=== PATIENT | female | born 1970 ===

== ENCOUNTER 2016-08-30 15:38 | Inpatient (IN) | payer BC ==
[2016-08-30 15:39] VITALS: BMI 27.9
--- NOTE | 2016-08-30 16:26 | C.PDOC ---
History Of Present Illness 45 y/o female sent from [facility] by Dr Castañeda for psychiatric evaluation. Patient made comments of SI in office with plan to overdose. Pt denies HI or any other complaints. Time Seen by Provider: 08/30/16 16:11 Chief Complaint (Nursing): Psychiatric Evaluation History Per: Patient History/Exam Limitations: no limitations Onset/Duration Of Symptoms: Days Current Symptoms Are (Timing): Still Present Severity: Moderate Associated Symptoms: Suicidal Thoughts, Suicidal Plan Involuntary Hold By: None Recent travel outside of the [place]: No Past Medical History Reviewed: Historical Data, Nursing Documentation, Vital Signs Vital Signs: Last Vital Signs Temp 98.9 F 08/30/16 15:50 Pulse 81 08/30/16 15:50 Resp 18 08/30/16 15:50 BP 133/83 08/30/16 15:50 Pulse Ox 99 08/30/16 16:27 - Medical History PMH: Anemia, Arthritis, Back Problems, Depression, Diabetes, Rheumatoid Arthritis (back ,lt leg ,both hands) - [facility] Procedures D & C NEC (12/06/14) LOCAL DESTR OVA LES NEC (12/06/14) Family History: States: Unknown Family Hx - Social History Hx Tobacco Use: No Hx Alcohol Use: No Hx Substance Use: No - Immunization History Hx Tetanus Toxoid Vaccination: No Hx Influenza Vaccination: Yes Hx Pneumococcal Vaccination: No Review Of Systems Constitutional: Negative for: Fever Cardiovascular: Negative for: Chest Pain Respiratory: Negative for: Shortness of Breath Gastrointestinal: Negative for: Vomiting Psych: Positive for: Suicidal ideation Physical Exam - Physical Exam Appears: Non-toxic, No Acute Distress Skin: Warm, Dry, No Rash Head: Atraumatic, Normacephalic Eye(s): bilateral: Normal Inspection, EOMI Neck: Normal ROM Chest: Symmetrical Cardiovascular: Rhythm Regular, No Murmur Respiratory: Normal Breath Sounds, No Rales, No Rhonchi, No Wheezing Gastrointestinal/Abdominal: Soft Extremity: Normal ROM, No Tenderness, No Calf Tenderness, No Deformity, No Swelling Neurological/Psych: Oriented x3, Normal Speech Gait: Steady ED Course And Treatment - Laboratory Results Result Diagrams: 08/30/16 16:20 08/30/16 16:20 O2 Sat by Pulse Oximetry: 99 (on room air) Pulse Ox Interpretation: Normal Medical Decision Making Medical Decision Making: Plan: * labs * UA * CRISIS evaluation Labs ordered and reviewed. In my clinical judgment patient is medically cleared and stable for psychiatric admission. wood processing worker contacted for evaluation. As per CW patient is to be admitted. Disposition - Disposition Disposition: HOSPITALIZED Disposition Time: 18:38 Condition: STABLE - POA Present On Arrival: None - Clinical Impression Clinical Impression: Depression - PA / POLICE DETECTIVE / Resident Statement MD/DO has reviewed & agrees with the documentation as recorded. - Scribe Statement The provider has reviewed the documentation as recorded by the Andreaibmaría Saenz All medical record entries made by the Scribe were at my direction and personally dictated by me. I have reviewed the chart and agree that the record accurately reflects my personal performance of the history, physical exam, medical decision making, and the department course for this patient. I have also personally directed, reviewed, and agree with the discharge instructions and disposition. Decision To Admit - Pt Status Changed To: Hospital Disposition Of: Inpatient - Admit Certification Admit to Inpatient:: After my assessment, the patient will require hospitalization for at least two midnights. This is because of the severity of symptoms shown, intensity of services needed, and/or the medical risk in this patient being treated as an outpatient. - InPatient: Physician Admission Certification: I certify that this patient requires 2 or more midnights of care for the following reason:: Patient with depression needing inpatient care, expressed SI - . Bed Request Type: Psychiatry Admitting Physician: Jacob Ward Patient Diagnosis: Depression
[2016-08-30 16:31] LABS: BASO % 0.6 % (0.0-2.0); EOS # 0.1 K/uL (0.0-0.7); EOS % 1.7 % (0.0-4.0); HEMATOCRIT 31.7 % (34.0-47.0); LYMPH # 1.7 K/uL (1.0-4.3); LYMPH % 21.3 % (20.0-40.0); MEAN CORPUSCULAR HEMOGLOBIN 25.7 pg (27.0-31.0); MEAN CORPUSCULAR HGB CONC 31.9 g/dL (33.0-37.0); MEAN PLATELET VOLUME 7.6 fL (7.2-11.7); MONO # 0.6 K/uL (0.0-0.8); MONO % 7.7 % (0.0-10.0); RED CELL DISTRIBUTION WIDTH 14.5 % (11.5-14.5); WHITE BLOOD COUNT 7.8 K/uL (4.8-10.8)
[2016-08-30 16:34] LABS: MEAN CELL VOLUME 80.5 fL (81.0-99.0)
[2016-08-30 16:40] LABS: CHLORIDE 97 mmol/L (98-107); SODIUM 138 mmol/L (132-148)
[2016-08-30 16:41] LABS: POTASSIUM 3.8 mmol/L (3.6-5.2)
[2016-08-30 16:42] LABS: RBC URINE 1 /hpf (0-3); URINE BILIRUBIN NEGATIVE (NEGATIVE); URINE BLOOD NEGATIVE (NEGATIVE); URINE COLOR Yellow (YELLOW); URINE GLUCOSE (UA) NORMAL (Normal); URINE KETONE NEGATIVE (NEGATIVE); URINE LEUKOCYTE ESTERASE NEG Leu/uL (Negative); URINE PROTEIN NEGATIVE (NEGATIVE); URINE UROBILINOGEN NORMAL mg/dL (0.2-1.0); WBC URINE < 1 /hpf (0-5)
[2016-08-30 16:43] LABS: ALB/GLOB RATIO 1.2 (1.0-2.1); ALKALINE PHOSPHATASE 81 U/L (38-126); ALT/SGPT 40 U/L (9-52); AST/SGOT 38 U/L (14-36); BILIRUBIN,TOTAL 0.3 mg/dL (0.2-1.3); BLOOD UREA NITROGEN 10 mg/dL (7-17); CALCIUM 8.9 mg/dl (8.6-10.4); CARBON DIOXIDE 25 mmol/L (22-30); GFR AFRICAN-AMERICAN > 60; GLUCOSE,RANDOM 95 mg/dL (65-105)
[2016-08-30 16:44] LABS: ALCOHOL SERUM < 10 mg/dl (0-10)
[2016-08-30 19:43] VITALS: O2SAT 98
[2016-08-30] MEDS ORDERED: Influenza Virus Vaccine 45 mcg/0.5 ml Syr IM ONE (21:00)
--- NOTE | 2016-08-31 11:12 | PCM.PSYCH ---
Initial Psychiatric Evaluation - Initial Psychiatric Evaluation Type of Admission: Voluntary Legal Status: Capacity Chief Complaint (in patient's own words): I am feeling very depressed History of Present Illness and Precipitating Events: Patient is a 45 years old female, who lives alone and currently unemployed on SSD. She has a long history of depressive disorder Rheumatoid arthritis and fibromyalgia. Yesterday she presented to the ED because of depressed mood and suicidal ideation. Patient states that she has a long history of depressive disorder due to her medical conditions ovarian tumor, rheumatoid arthritis and fibromyalgia. Since past few weeks she is experiencing a lot of joint pains and back pains. As a result she is becoming increasingly depressed, irritable and hopeless. Although she has never admitted to any psychiatric hospital, nevertheless, she follows up with Dr Castañeda at [facility]. As per the pt yesterday she was in severe pain when she became increasingly depressed and developed suicidal ideation with a plan to overdose on prescription medications. Patient states that she has no hope as has joint disease have become worse over the course of years, she now feels helpless and worthless. She reports poor sleep and poor appetite. She feels tired all the times. Recently she has been hearing voices calling her names and she is developing persecutory delusions that someone is watching her. She denies any visual hallucinations or any other psychotic symptoms. She denies any h/o drinking or any drugs use. Past medical history Rheumatoid Arthritis, DM, Fibromyalgia, Ovarian tumor Current Medications: Active Medications Generic Name Dose Route Start Last Admin Trade Name Freq PRN Reason Stop Dose Admin Diclofenac Sodium 75 mg 08/31/16 11:09 Voltaren PO BID PRN Pain, moderate (4-7) Ferrous Sulfate 325 mg 08/31/16 10:00 08/31/16 11:08 Feosol PO 325 mg DAILY ASTRID Administration Home Med 10 mg 08/31/16 11:15 Medroxyprogesterone Acetate [Medroxyprogesterone] PO BID ASTRID Home Med 25 mg 09/01/16 10:00 Venlafaxine Hcl [Venlafaxine Hcl] PO QAM ASTRID Lorazepam 1 mg 08/30/16 21:09 08/30/16 22:44 Ativan PO 1 mg Q6 PRN Administration Anxiety Metformin HCl 500 mg 08/31/16 10:00 08/31/16 11:08 Glucophage PO 500 mg BID ASTRID Administration Pneumococcal Polyvalent Vaccine 0.5 ml 09/02/16 10:00 Pneumovax 23 Vaccine IM 09/02/16 10:01 .ONCE ONE Pregabalin 150 mg 08/30/16 22:00 08/30/16 22:44 Lyrica PO 150 mg HS ASTRID Administration Pregabalin 150 mg 08/31/16 22:00 Lyrica PO HS ASTRID Sulfasalazine 2 mg 08/31/16 11:15 Azulfidine PO BID ASTRID Trazodone HCl 50 mg 08/30/16 21:09 Desyrel PO HS PRN Insomnia Past Psychiatric History - Past Psychiatric History Previous Treatment History: None Pertinent Medical Hx (Current Medical&Sleep Prob, Allergies): Allergies Allergy/AdvReac Type Severity Reaction Status Date / Time No Known Allergies Allergy Verified 02/02/16 14:21 metFORMIN ER [glucoPHAGE XR] 500 mg PO TID #0 ter 12/15/14 Diclofenac Sodium [Voltaren] 75 mg PO BID PRN 05/01/15 Medroxyprogesterone Acetate [Medroxyprogesterone] 10 mg PO BID 05/01/15 Pregabalin [Lyrica] 150 mg PO HS 05/01/15 SulfaSALAzine [Azulfidine] 2 tab PO BID 05/01/15 Venlafaxine HCl 25 mg PO QAM 05/01/15 Ferrous Sulfate 325 mg PO DAILY #100 tab 05/03/15 Review of Systems - Review of Systems All systems: reviewed and no additional remarkable complaints except - Psychiatric Psychiatric: Anxiety, Auditory Hallucinations, Depression, Hopelessness, Irritability, Paranoia, Suicidal Ideation Mental Status Examination - Personal Presentation Personal Presentation: Looks older than stated age - Affect Affect: Constricted, Depressed - Motor Activity Motor Activity: Psychomotor Retardation - Reliability in Providing Information Reliability in Providing Information: Poor, due to altered mood - Speech Speech: Organized - Mood Mood: Depressed, Anxious - Formal Thought Process Formal Thought Process: Hallucinations, Paranoia - Hallucinations/Delusions Hallucinations: Auditory Delusions: Persecution - Obsessions/Compulsions Obsessions: No Compulsions: No - Cognitive Functions Orientation: Person, Place, Situation, Time Sensorium: Alert Attention/Concentration: Attentive Abstract Thinking: [place] Estimate of Intelligence: Below average Judgement: Imparied, as evidence by: Poor judgement, Imparied, as evidence by: Lack of insight into illness - Risk Risk: Suicidal, Diminished functioning - Strength & Assets Inventory Strength & Assets Inventory: Education - Limitations Limitations: Living alone DSM 5 DX - DSM 5 DSM 5 Diagnosis: Major depressive disorder recurrent severe with psychotic features Fibromyalgia Rheumatoid Arthritis, DM Ovarian tumor - Recommended/Plan of Treatment Treatment Recommendations and Plan of Treatment: Major depressive disorder recurrent severe with psychotic features CBT Psychoeducation Supportive therapy, group therapy, individual therapy Zoloft 50 mg by mouth daily with plan to maximize the dose Trazodone 50 mg by mouth daily at bedtime Remeron 15 mg po qhs Fibromyalgia Start Gabapentin 300 mg PO TID Continue prescribed medications Monitor for signs and symptoms Rheumatoid Arthritis, Continue prescribed medications Monitor for signs and symptoms DM Continue prescribed medications Monitor for signs and symptoms Ovarian tumor Continue prescribed medications Monitor for signs and symptoms - Smoking Cessation Smoking Cessation Initiated: No
[2016-08-31] MEDS ORDERED: MEDROXYPROGESTERONE ACETATE 10 MG PO SCH (11:15)
[2016-08-31] MEDS ORDERED: Diclofenac Sodium Delayed Release 75 mg EC Tab PO PRN (12:13)
[2016-09-01] MEDS ORDERED: VENLAFAXINE HCL 25 MG PO SCH (10:00)
[2016-09-01 10:11] VITALS: TEMP 98
[2016-09-02 07:40] VITALS: BP 102/63; PULSE 66; RESP 18
[2016-09-02] MEDS ORDERED: Pneumococcal 23-Valent Vaccine IM ONE (10:00)
== END 2016-09-02 11:20 | disposition home or self-care (01) | DRG 885 ==
LOC: C.ER 15:38 → C.5E 18:37
PROVIDERS: ADMIT Psychiatry & Neurology Psychiatry; ATTEND Psychiatry & Neurology Psychiatry
PROC: GZ3ZZZZ Medication Management (ICD-10-PCS; principal; 2016-08-30)
PROC: GZHZZZZ Group Psychotherapy (ICD-10-PCS; 2016-08-30)
PROC: GZ56ZZZ Individual Psychotherapy, Supportive (ICD-10-PCS; 2016-08-30)
DX: F33.3 Major depressive disorder, recurrent, severe with psychotic symptoms (principal); R45.851 Suicidal ideations; M79.7 Fibromyalgia; M06.9 Rheumatoid arthritis, unspecified; E11.9 Type 2 diabetes mellitus without complications; D39.10 Neoplasm of uncertain behavior of unspecified ovary; Z79.84 Long term (current) use of oral hypoglycemic drugs

== ENCOUNTER 2017-08-07 12:14 | Emergency (ER) | payer MEDICARE ==
[2017-08-07 12:14] VITALS: BMI 27.9
[2017-08-07 12:41] VITALS: RESP 16; TEMP 97.8
--- NOTE | 2017-08-07 14:05 | C.PDOC ---
History Of Present Illness <Jaquelin Latif - Last Filed: 08/07/17 17:34> <Kaley Marquez - Last Filed: 08/07/17 18:21> 46 year old female with past medical history of fibromyalgia, major depressive disorder, rheumatoid arthritis, and diabetes presents to the ED for abdominal pain that started 2 days ago. Patient saw her oceanographer geological today who told her to come to the ER. Patient states the pain is a sharp pain radiating to her pelvis. She states the pain is a 7/10 constant pain. She states she has felt nauseated. She denies vomiting, fever, or diarrhea. She states she has chronic constipation with hemorrhoids that she sees a paraoptometric for. She states before coming to the ED she took 4 tablets of 0.25mg Xanax and 4 tablets of 150mg of Lyrica because the pain was unbearable and she usually gets depressed when she has intense pain. She denies current thoughts of hurting herself. Rhematologist: Dr. Matos Past Medical History:fibromyalgia, major depressive disorder, rheumatoid arthritis, diabetes, hemorrhoids and fibroids. Past Surgical History: Hernia repair, fibroid removal Allergies: NKDA (Jaquelin Latif) Patient c/o lower abdominal pain with radiation into her left flank and lower back for the past 3 days. She feels as if her bladder is not emptying completely.She has a history of a pelvic mesh that she wants to have removed. She denies any dysuria, fever chills or vaginal bleeding or discharge. (Kaley Marquez) History Per: Patient History/Exam Limitations: no limitations Current Symptoms Are (Timing): Still Present Pain Scale Rating Of: 7 <Jaquelin Latif - Last Filed: 08/07/17 17:34> <Kaley Marquez - Last Filed: 08/07/17 18:21> Time Seen by Provider: 08/07/17 13:42 Chief Complaint (Nursing): Abdominal Pain Past Medical History - Medical History PMH: Anemia, Arthritis, Back Problems, Depression, Diabetes, Hypercholesterolemia (NO MEDS), Rheumatoid Arthritis (back ,lt leg ,both hands) Denies: Chronic Kidney Disease Family History: States: Unknown Family Hx - Social History Hx Tobacco Use: No Hx Alcohol Use: No Hx Substance Use: No - Immunization History Hx Tetanus Toxoid Vaccination: No Hx Influenza Vaccination: Yes Hx Pneumococcal Vaccination: No <Jaquelin Latif - Last Filed: 08/07/17 17:34> Vital Signs: Last Vital Signs Temp 97.8 F 08/07/17 12:33 Pulse 93 H 08/07/17 12:33 Resp 16 08/07/17 12:33 BP 124/88 08/07/17 12:33 Pulse Ox 99 08/07/17 17:34 - [facility] Procedures D & C NEC (12/06/14) GROUP PSYCHOTHERAPY (08/30/16) INDIVIDUAL PSYCHOTHERAPY, SUPPORTIVE (08/30/16) LOCAL DESTR OVA LES NEC (12/06/14) MEDICATION MANAGEMENT (08/30/16) Review Of Systems Constitutional: Negative for: Fever, Chills Cardiovascular: Negative for: Chest Pain, Palpitations Respiratory: Negative for: Cough, Shortness of Breath Gastrointestinal: Positive for: Nausea, Abdominal Pain, Constipation. Negative for: Vomiting, Diarrhea Genitourinary: Positive for: Dysuria, Pelvic Pain. Negative for: Hematuria Neurological: Negative for: Numbness, Dizziness <Jaquelin Latif - Last Filed: 08/07/17 17:34> Physical Exam - Physical Exam Appears: Non-toxic, No Acute Distress Skin: Normal Color Head: Atraumatic, Normacephalic Eye(s): bilateral: Normal Inspection, PERRL, EOMI Oral Mucosa: Moist Cardiovascular: Rhythm Regular, No Murmur, No JVD Respiratory: Normal Breath Sounds, No Decreased Breath Sounds, No Accessory Muscle Use, No Wheezing Gastrointestinal/Abdominal: Bowel Sounds (normal), Soft, Tenderness (lower middle abdominal tenderness ), No Distention, No Guarding, No Rebound Extremity: No Tenderness, No Pedal Edema, No Swelling Neurological/Psych: Oriented x3, Normal Speech, Normal Cognition <Jaquelin Latif - Last Filed: 08/07/17 17:34> ED Course And Treatment - Laboratory Results Result Diagrams: 08/07/17 14:23 08/07/17 14:23 O2 Sat by Pulse Oximetry: 99 <Jaquelin Latif - Last Filed: 08/07/17 17:34> - Laboratory Results Result Diagrams: 08/07/17 14:23 08/07/17 14:23 Lab Interpretation: No Acute Changes Pulse Ox Interpretation: Normal - CT Scan/US Abdomen and Pelvis Other Rad Studies (CT/US): Read By Radiologist, Radiology Report Reviewed CT/US Interpretation: Accession No. : [id number]. Patient Name / ID : BRANNON SEE / [id number]. Exam Date : 08/07/2017 15:33:05 ( Approved ). Study Comment : Sex / Age : F / 46Y. Creator : Socorro Malagon MD. Dictator : Socorro Malagon MD. Coding Quality Analyst : [employer] : Socorro Malagon MD. Approver2 : Report Date : 08/07/2017 16:37:48. My Comment : . HISTORY: Abdominal ultrasound. COMPARISON: CT abdomen and pelvis with contrast performed 05/04/15. TECHNIQUE: Sonographic evaluation of the abdomen. FINDINGS: LIVER: Measures 18.7 cm in sagittal dimension. Echogenic liver may be seen in setting of hepatic parenchymal disease or fatty infiltration. No focal hepatic mass identified. The main portal vein appears patent with normal directional flow. No intrahepatic bile duct dilatation. GALLBLADDER: No gallstones. No gallbladder wall thickening. Negative sonographic Cardenas's sign as assessed by the personal caregiver. COMMON BILE DUCT: Measures 3 mm. PANCREAS: Not well visualized. RIGHT KIDNEY: Measures 13.4 x 5.3 x 4.9cm. 9 mm midpole echogenic focus, likely nonobstructing calculus. No hydronephrosis or obstructing calculus identified. LEFT KIDNEY: Measures 12.6 x 5.3 x 4.9cm. Mild left-sided hydronephrosis. No obstructing calculus identified. SPLEEN: Measures approximately 10 cm. AORTA: Limited views appear unremarkable. IVC: Limited views appear unremarkable. OTHER FINDINGS: Incidental note is made of postvoid residual volume 60.2 cc. IMPRESSION: Echogenic liver may be seen in setting of hepatic parenchymal disease or fatty infiltration. Mild left-sided hydronephrosis without evidence of obstructing calculus. 9 mm midpole echogenic focus within the right kidney, likely nonobstructing calculus. Incidental note is made of postvoid residual volume 60.2 cc. Reevaluation Time: 18:18 Reassessment Condition: Improved <Kaley Marquez - Last Filed: 08/07/17 18:21> Medical Decision Making <Jaquelin Latif - Last Filed: 08/07/17 17:34> <Kaley Marquez - Last Filed: 08/07/17 18:21> Medical Decision Making: Abdominal Pain secondary to fibromylagia cbc: H/H: 10.6/31.9 cmp: Na 140; K 4.0; BUN/Cr 9/0.5 Elevated liver enzymes secondary to polypharmacy AST/ALT 70/68 abdominal US: Mild left hydronephrosis without evidence of obstructing calculus UA: WNL (Jaquelin Latif) Disposition Discussed With Dr.: Kaley Marquez Doctor Will See Patient In The: ED - Disposition Disposition Time: 17:23 <Jaquelin Latif - Last Filed: 08/07/17 17:34> Counseled Patient/Family Regarding: Studies Performed, Diagnosis, Need For Followup <Kaley Marquez - Last Filed: 08/07/17 18:21> - Disposition Referrals: Elmer Justin MD [Medical Doctor] - Disposition: HOME/ ROUTINE Condition: GOOD Instructions: Fibromyalgia, Acute Pelvic Pain (DC) Forms: [employer] ([place]) - Clinical Impression Clinical Impression: Fibromyalgia, Pelvic pain - PA / CERTIFIED ORTHOTIST PRACTICE MANAGER / Resident Statement / has reviewed & agrees with the documentation as recorded. / has examined the patient and agrees with the treatment plan. <Jaquelin Latif - Last Filed: 08/07/17 17:34>
[2017-08-07 14:29] LABS: BASO # 0.1 K/uL (0.0-0.2); BASO % 1.4 % (0.0-2.0); EOS # 0.1 K/uL (0.0-0.7); EOS % 1.7 % (0.0-4.0); HEMOGLOBIN 10.6 g/dL (11.0-16.0); LYMPH # 2.6 K/uL (1.0-4.3); LYMPH % 33.4 % (20.0-40.0); MEAN CELL VOLUME 81.6 fL (81.0-99.0); MEAN CORPUSCULAR HEMOGLOBIN 27.1 pg (27.0-31.0); MEAN CORPUSCULAR HGB CONC 33.2 g/dL (33.0-37.0); MEAN PLATELET VOLUME 8.1 fL (7.2-11.7); MONO # 0.5 K/uL (0.0-0.8); MONO % 6.5 % (0.0-10.0); NEUT # 4.5 K/uL (1.8-7.0); RBC 3.91 Mil/uL (3.80-5.20); RED CELL DISTRIBUTION WIDTH 16.9 % (11.5-14.5); WHITE BLOOD COUNT 7.9 K/uL (4.8-10.8)
[2017-08-07 14:39] LABS: SQUAMOUS EPITHIAL 1 /hpf (0-5); URINE BACTERIA RARE (<OCC); URINE BILIRUBIN NEGATIVE (NEGATIVE); URINE BLOOD NEGATIVE (NEGATIVE); URINE CLARITY Clear (Clear); URINE COLOR Colorless (YELLOW); URINE GLUCOSE (UA) NORMAL (Normal); URINE LEUKOCYTE ESTERASE NEG Leu/uL (Negative); URINE NITRATE NEGATIVE (NEGATIVE); URINE PROTEIN NEGATIVE (NEGATIVE); URINE UROBILINOGEN NORMAL mg/dL (0.2-1.0)
[2017-08-07 14:42] LABS: ALB/GLOB RATIO 1.1 (1.0-2.1); ALBUMIN 4.3 g/dL (3.5-5.0); ALT/SGPT 68 U/L (9-52); AST/SGOT 70 U/L (14-36); BLOOD UREA NITROGEN 9 mg/dL (7-17); CALCIUM 8.9 mg/dl (8.6-10.4); GFR AFRICAN-AMERICAN > 60; GFR NON-AFRICAN AMERICAN > 60
--- NOTE | 2017-08-07 16:39 | US ---
HISTORY: Abdominal ultrasound COMPARISON: CT abdomen and pelvis with contrast performed 05/04/15 TECHNIQUE: Sonographic evaluation of the abdomen. FINDINGS: LIVER: Measures 18.7 cm in sagittal dimension. Echogenic liver may be seen in setting of hepatic parenchymal disease or fatty infiltration. No focal hepatic mass identified. The main portal vein appears patent with normal directional flow. No intrahepatic bile duct dilatation. GALLBLADDER: No gallstones. No gallbladder wall thickening. Negative sonographic Cardenas's sign as assessed by the wood carving lathe operator. COMMON BILE DUCT: Measures 3 mm. PANCREAS: Not well visualized. RIGHT KIDNEY: Measures 13.4 x 5.3 x 4.9cm. 9 mm midpole echogenic focus, likely nonobstructing calculus. No hydronephrosis or obstructing calculus identified. LEFT KIDNEY: Measures 12.6 x 5.3 x 4.9cm. Mild left-sided hydronephrosis. No obstructing calculus identified. SPLEEN: Measures approximately 10 cm. AORTA: Limited views appear unremarkable. IVC: Limited views appear unremarkable. OTHER FINDINGS: Incidental note is made of postvoid residual volume 60.2 cc. IMPRESSION: Echogenic liver may be seen in setting of hepatic parenchymal disease or fatty infiltration. Mild left-sided hydronephrosis without evidence of obstructing calculus. 9 mm midpole echogenic focus within the right kidney, likely nonobstructing calculus. Incidental note is made of postvoid residual volume 60.2 cc.
[2017-08-07 18:48] VITALS: BP 126/84; PULSE 78; O2SAT 98
== END 2017-08-07 18:47 | disposition home or self-care (01) ==
LOC: C.ER 12:14
DX: M79.7 Fibromyalgia (principal); R10.2 Pelvic and perineal pain; E11.9 Type 2 diabetes mellitus without complications; M06.9 Rheumatoid arthritis, unspecified; E78.00 Pure hypercholesterolemia, unspecified

== ENCOUNTER 2018-03-19 09:13 | Day surgery (SDC) | payer MEDICARE, SELFPAY ==
[2018-03-19] MEDS ORDERED: Lidocaine Hydrochloride 10 ML INJ ONE (10:12)
--- NOTE | 2018-03-19 10:51 | CP.SDSHP ---
Same Day Surgery H & P - History Proposed Procedure: US guided FNA of neck node Pre-Op Diagnosis: Cervical lymphadenopathy - Allergies Allergies: Allergies No Known Allergies Allergy (Verified 08/07/17 12:28) - Impression Impression: Pt with a 2.3 cm jugular chain lymph node. Plan US guided FNA. Pt. Evaluated Today:Candidate for Anesthesia & Procedure: No - Date & Time Date: 03/19/18 Time: 10:20 Short Stay Discharge - Short Stay Discharge Admitting Diagnosis/Reason for Visit: LOCALIZED SWELLING, MASS AND LUMP, NECK Disposition: HOME/ ROUTINE
--- NOTE | 2018-03-19 10:52 | PCM.SURG1 ---
Surgeon's Initial Post Op Note - Surgeon's Notes Surgeon: Sesar Guzman MD Pie Crimping Machine Operator: None Type of Anesthesia: Local Pre-Operative Diagnosis: Cervical lymphadenopathy Operative Findings: Multiple lymphnodes right and left neck. Largest left jugular chain node is 2.3 cm. Post-Operative Diagnosis: Cervical lymphadenopathy Operation Performed: US guided FNA of left neck lymph node. Specimen/Specimens Removed: 25 g FNA x 6 Estimated Blood Loss: EBL {In ML}: 1 Blood Products Given: N/A Drains Used: No Drains Post-Op Condition: Good Date of Surgery/Procedure: 03/19/18 Time of Surgery/Procedure: 10:50
--- NOTE | 2018-03-21 11:08 | US ---
PROCEDURE: Date of procedure: 03/19/2018 Procedure: Ultrasound-guided FNA of left submandibular lymph node, CPT 74094 Ultrasound guidance for biopsy, [id number] Medications: 3 cc 1% Lidocaine HISTORY: Multiple cervical lymph nodes with a 2.31 cm left jugular lymph node. TECHNIQUE: Following informed consent and procedure time-out, limited ultrasound patient's left neck demonstrates a left submandibular lymph node measuring 2.31 cm. The patient's neck was prepped and draped in the usual sterile fashion. The skin was anesthetized with 1 percent lidocaine. Ultrasound-guided fine needle aspiration was then performed using a 25 gauge needle. A total of 6 passes were made into the lymph node under direct ultrasound guidance. FNA specimens were obtained and sent for routine pathology and flow cytometry. A post biopsy ultrasound showed no hematoma. IMPRESSION: Ultrasound-guided FNA of enlarged left neck lymph node.
== END 2018-03-19 11:45 | disposition home or self-care (01) ==
LOC: C.SPRAD 09:13
PROVIDERS: ATTEND Radiology Vascular & Interventional Radiology
DX: R59.0 Localized enlarged lymph nodes (principal)

== ENCOUNTER 2018-07-14 14:59 | Emergency (ER) | payer MEDICARE, SELFPAY ==
[2018-07-14 15:00] VITALS: BMI 27.9
[2018-07-14 15:09] VITALS: RESP 18; TEMP 97.5
[2018-07-14] MEDS ORDERED: Albuterol 0.083% Inhal Sol (2.5 mg/3 mL) UD IH STA (15:29)
[2018-07-14] MEDS ORDERED: Albuterol 0.083% Inhal Sol (2.5 mg/3 mL) UD ONE (15:41)
--- NOTE | 2018-07-14 16:48 | C.PDOC ---
History Of Present Illness 47 year old female presents to the ED for evaluation of fever, chills, nasal congestion, cough, shortness of breath and generalized body aches for two days. Patient has been using [id number] medication without relief. She denies nausea, vomiting, diarrhea or sick contacts. Time Seen by Provider: 07/14/18 15:15 Chief Complaint (Nursing): Flu-like Symptoms History Per: Patient History/Exam Limitations: no limitations Onset/Duration Of Symptoms: Days (2) Current Symptoms Are (Timing): Still Present Additional History Per: Patient Past Medical History Reviewed: Historical Data, Nursing Documentation, Vital Signs Vital Signs: Last Vital Signs Temp 97.5 F L 07/14/18 15:04 Pulse 110 H 07/14/18 15:04 Resp 18 07/14/18 15:04 BP 136/92 H 07/14/18 15:04 Pulse Ox 99 07/14/18 15:04 - Medical History PMH: Anemia, Arthritis, Back Problems, Colonic Polyps, Depression, Diabetes, Fibromyalgia, Hypercholesterolemia (NO MEDS), Kidney Stones ([place]. DONE-"NOT LASER OR SURGERY-ELECTRICAL"), Chronic Kidney Disease, Rheumatoid Arthritis Surgical History: No Surg Hx - [facility] Procedures D & C NEC (12/06/14) GROUP PSYCHOTHERAPY (08/30/16) INDIVIDUAL PSYCHOTHERAPY, SUPPORTIVE (08/30/16) LOCAL DESTR OVA LES NEC (12/06/14) MEDICATION MANAGEMENT (08/30/16) Family History: States: Unknown Family Hx - Social History Hx Tobacco Use: No Hx Alcohol Use: No Hx Substance Use: No - Immunization History Hx Tetanus Toxoid Vaccination: No Hx Influenza Vaccination: Yes Hx Pneumococcal Vaccination: No Review Of Systems Constitutional: Positive for: Fever, Chills ENT: Positive for: Nose Congestion Respiratory: Positive for: Cough, Shortness of Breath Gastrointestinal: Negative for: Nausea, Vomiting, Diarrhea Musculoskeletal: Positive for: Other (generalized body aches ) Physical Exam - Physical Exam Appears: Non-toxic, No Acute Distress, Other (uncomfortable ) Skin: Normal Color, Warm, Dry Head: Atraumatic, Normacephalic Eye(s): bilateral: Normal Inspection Ear(s): Bilateral: Normal Nose: Normal, No Discharge Oral Mucosa: Moist Throat: Normal, No Erythema, No Exudate Neck: Supple Chest: Symmetrical, No Deformity, No Tenderness Cardiovascular: Rhythm Regular, No Murmur Respiratory: Wheezing (mild, expiratory ), Other (occasional cough noted. patient is speaking in full sentences ) Extremity: Normal ROM, Capillary Refill (less than 2 seconds ) Neurological/Psych: Oriented x3, Normal Speech, Normal Cognition ED Course And Treatment O2 Sat by Pulse Oximetry: 99 Pulse Ox Interpretation: Normal Progress Note: Patient given Albuterol INH, Tylenol PO and Tamiflu PO. On reassessment, patient is resting comfortably, showing no signs of respiratory distress and is stable for discharge. Patient is advised to f/u with PMD within 1-2 days for further evaluation. Disposition Counseled Patient/Family Regarding: Diagnosis, Need For Followup, Rx Given - Disposition Referrals: [facility] [Outside] Disposition: HOME/ ROUTINE Disposition Time: 16:45 Condition: STABLE Additional Instructions: FOLLOW UP WITH YOUR DOCTOR/CLINIC IN 1-2 DAYS USE MEDICATIONS DIRECTED DRINK PLENTY OF FLUIDS AND GET REST RETURN TO ER IF SYMPTOMS WORSEN Prescriptions: Albuterol HFA [Ventolin HFA 90 mcg/actuation (8 g)] 0.09 mg IH Q4 PRN #1 puff PRN Reason: Wheezing Benzonatate [Tessalon Perles] 100 mg PO BID PRN #15 sgl PRN Reason: Cough Naproxen 375 mg PO BID PRN #20 tablet PRN Reason: pain Oseltamivir Phosphate [Tamiflu] 75 mg PO BID #10 capsule Instructions: Flu, Adult (DC) Forms: [facility] (Vietnamese), Work Excuse Print Language: TURKISH - Clinical Impression Clinical Impression: Influenza-like illness - Scribe Statement The provider has reviewed the documentation as recorded by the Scribe (Lidia Oglesby) Provider Attestation: All medical record entries made by the Scribe were at my direction and personally dictated by me. I have reviewed the chart and agree that the record accurately reflects my personal performance of the history, physical exam, medical decision making, and the department course for this patient. I have also personally directed, reviewed, and agree with the discharge instructions and disposition.
[2018-07-14 17:02] VITALS: BP 128/86; PULSE 96
[2018-07-15 14:07] VITALS: O2SAT 99
== END 2018-07-14 17:02 | disposition home or self-care (01) ==
LOC: C.ER 14:59
DX: J11.1 Influenza due to unidentified influenza virus with other respiratory manifestations (principal)

== ENCOUNTER 2018-07-19 15:45 | Emergency (ER) | payer MEDICARE, SELFPAY ==
[2018-07-19 15:46] VITALS: BMI 27.9
[2018-07-19] MEDS ORDERED: Sodium Chloride 0.9% 1,000 ML IV ONE (16:30)
--- NOTE | 2018-07-19 16:39 | C.PDOC ---
History Of Present Illness 47 year old female with a history of kidney stones presents to the ED for evaluation of left-sided back pain that radiates to the left groin associated with decreased urination and subjective fever for 10 days. The patient also complains of flu like symptoms associated with cough and runny nose for 1 week. Denies nausea, vomiting, diarrhea, and any other associated symptoms. Time Seen by Provider: 07/19/18 16:08 Chief Complaint (Nursing): Abdominal Pain History Per: Patient History/Exam Limitations: no limitations Onset/Duration Of Symptoms: Days (x10) Current Symptoms Are (Timing): Still Present Past Medical History Vital Signs: Last Vital Signs Temp 97.7 F 07/19/18 15:58 Pulse 115 H 07/19/18 15:58 Resp 18 07/19/18 15:58 BP 161/100 H 07/19/18 15:58 Pulse Ox 98 07/19/18 15:58 - Medical History PMH: Anemia, Arthritis, Back Problems, Colonic Polyps, Depression, Diabetes, Fibromyalgia, Hypercholesterolemia (NO MEDS), Kidney Stones ([place]. DONE-"NOT LASER OR SURGERY-ELECTRICAL"), Chronic Kidney Disease, Rheumatoid Arthritis - [facility] Procedures D & C NEC (12/06/14) GROUP PSYCHOTHERAPY (08/30/16) INDIVIDUAL PSYCHOTHERAPY, SUPPORTIVE (08/30/16) LOCAL DESTR OVA LES NEC (12/06/14) MEDICATION MANAGEMENT (08/30/16) Family History: States: Unknown Family Hx - Social History Hx Tobacco Use: No Hx Alcohol Use: No Hx Substance Use: No - Immunization History Hx Tetanus Toxoid Vaccination: No Hx Influenza Vaccination: Yes Hx Pneumococcal Vaccination: No ED Course And Treatment O2 Sat by Pulse Oximetry: 98 Disposition - Disposition
--- NOTE | 2018-07-19 16:43 | C.PDOC ---
History Of Present Illness 47 year old female with a history of kidney stones presents to the ED for evaluation of left-sided back pain that radiates to the left groin associated with decreased urination and subjective fever for 10 days. The patient also comp lains of flu like symptoms associated with cough and runny nose for 1 week. Denies nausea, vomiting, diarrhea, sore throat, and any other associated symptoms. <Leana Bob - Last Filed: 07/19/18 19:04> History Per: Patient History/Exam Limitations: no limitations Onset/Duration Of Symptoms: Days (x10) Current Symptoms Are (Timing): Still Present Recent travel outside of the [place]: No <Leana Bob - Last Filed: 07/19/18 19:04> <Christen Skinner - Last Filed: 07/19/18 20:04> Time Seen by Provider: 07/19/18 16:08 Chief Complaint (Nursing): Abdominal Pain Past Medical History Reviewed: Historical Data, Nursing Documentation, Vital Signs Vital Signs: Last Vital Signs Temp 97.7 F 07/19/18 15:58 Pulse 115 H 07/19/18 15:58 Resp 18 07/19/18 15:58 BP 161/100 H 07/19/18 15:58 Pulse Ox 98 07/19/18 15:58 - Medical History PMH: Anemia, Arthritis, Back Problems, Colonic Polyps, Depression, Diabetes, Fibromyalgia, Hypercholesterolemia (NO MEDS), Kidney Stones ([place]. DONE-"NOT LASER OR SURGERY-ELECTRICAL"), Chronic Kidney Disease, Rheumatoid Arthritis - [facility] Procedures D & C NEC (12/06/14) GROUP PSYCHOTHERAPY (08/30/16) INDIVIDUAL PSYCHOTHERAPY, SUPPORTIVE (08/30/16) LOCAL DESTR OVA LES NEC (12/06/14) MEDICATION MANAGEMENT (08/30/16) Family History: States: Unknown Family Hx - Social History Hx Tobacco Use: No Hx Alcohol Use: No Hx Substance Use: No - Immunization History Hx Tetanus Toxoid Vaccination: No Hx Influenza Vaccination: Yes Hx Pneumococcal Vaccination: No <Leana Bob - Last Filed: 07/19/18 19:04> Vital Signs: Last Vital Signs Temp 97.7 F 07/19/18 15:58 Pulse 69 07/19/18 19:00 Resp 18 07/19/18 19:00 BP 134/90 07/19/18 19:00 Pulse Ox 98 07/19/18 19:05 - [facility] Procedures D & C NEC (12/06/14) GROUP PSYCHOTHERAPY (08/30/16) INDIVIDUAL PSYCHOTHERAPY, SUPPORTIVE (08/30/16) LOCAL DESTR OVA LES NEC (12/06/14) MEDICATION MANAGEMENT (08/30/16) <Christen Skinner - Last Filed: 07/19/18 20:04> Review Of Systems Except As Marked, All Systems Reviewed And Found Negative. Constitutional: Positive for: Fever (subjective. ) ENT: Positive for: Nose Congestion. Negative for: Throat Pain (sore) Respiratory: Positive for: Cough Gastrointestinal: Negative for: Nausea, Vomiting, Diarrhea Musculoskeletal: Positive for: Back Pain (left-sided.), Other ((+) left-sided groin pain, secondary to back pain. ) <Leana Bob - Last Filed: 07/19/18 19:04> Physical Exam - Physical Exam Appears: Well, Non-toxic, No Acute Distress Skin: Warm, Dry Head: Atraumatic, Normacephalic Eye(s): bilateral: Normal Inspection Ear(s): Bilateral: Normal Nose: Normal Oral Mucosa: Moist Throat: Normal, No Erythema, No Exudate Neck: Normal ROM, Supple Chest: Symmetrical Cardiovascular: Rhythm Regular, No Murmur Respiratory: Normal Breath Sounds, No Rales, No Rhonchi, No Wheezing Gastrointestinal/Abdominal: Soft, Tenderness (mild diffuse tenderness. ) Back: Normal Inspection, No CVA Tenderness Extremity: Normal ROM (x4) <Leana Bob - Last Filed: 07/19/18 19:04> ED Course And Treatment - Laboratory Results Result Diagrams: 07/19/18 17:25 07/19/18 17:25 O2 Sat by Pulse Oximetry: 98 (RA) Pulse Ox Interpretation: Normal <Leana Bob Last Filed: 07/19/18 19:04> - Laboratory Results Result Diagrams: 07/19/18 17:25 07/19/18 17:25 Lab Results: Total Bilirubin 0.4 mg/dL (0.2-1.3) 07/19/18 17:25 AST 75 U/L (14-36) H 07/19/18 17:25 ALT 47 U/L (9-52) 07/19/18 17:25 Alkaline Phosphatase 104 U/L (38-126) 07/19/18 17:25 Total Protein 8.1 g/dL (6.3-8.3) 07/19/18 17:25 Albumin 4.5 g/dL (3.5-5.0) 07/19/18 17:25 Globulin 3.6 gm/dL (2.2-3.9) 07/19/18 17:25 Albumin/Globulin Ratio 1.2 (1.0-2.1) 07/19/18 17:25 Lipase 54 U/L (23-300) 07/19/18 17:25 Urine Color Straw (YELLOW) 07/19/18 17:25 Urine Clarity Hazy (Clear) 07/19/18 17:25 Urine pH 6.0 (5.0-8.0) 07/19/18 17:25 Ur Specific [place] 1.005 (1.003-1.030) 07/19/18 17:25 Urine Protein Negative mg/dL (NEGATIVE) 07/19/18 17:25 Urine Glucose (UA) 1+ mg/dL (Normal) 07/19/18 17:25 Urine Ketones Negative mg/dL (NEGATIVE) 07/19/18 17:25 Urine Blood Negative (NEGATIVE) 07/19/18 17:25 Urine Nitrate Negative (NEGATIVE) 07/19/18 17:25 Urine Bilirubin Negative (NEGATIVE) 07/19/18 17:25 Urine Urobilinogen Normal mg/dL (0.2-1.0) 07/19/18 17:25 Ur Leukocyte Esterase Neg Bella/uL (Negative) 07/19/18 17:25 Urine WBC (Auto) 1 /hpf (0-5) 07/19/18 17:25 Urine RBC (Auto) 1 /hpf (0-3) 07/19/18 17:25 Ur Squamous Epith Cells 7 /hpf (0-5) H 07/19/18 17:25 Urine Bacteria Rare (<OCC) 07/19/18 17:25 Urine HCG, Qual Negative (NEGATIVE) 07/19/18 17:25 Urine HCG, Qual Negative (NEGATIVE) 07/19/18 17:25 - CT Scan/US CT A/P Other Rad Studies (CT/US): Read By Radiologist, Radiology Report Reviewed CT/US Interpretation: EXAM: CT Abdomen without IV contrast. CLINICAL HISTORY: LEFT FLANK PAIN. TECHNIQUE: Axial computed tomography images of the abdomen and pelvis without intravenous contrast. 0.00 mGy-cm. CONTRAST: Without. COMPARISON: None provided. FINDINGS: LUNG BASES: The lung bases appear clear. No pleural effusions are seen. LIVER: Unremarkable. GALLBLADDER AND BILE DUCTS: The gallbladder appears within normal limits. No radioopaque gallstones are seen. No biliary ductal dilatation is evident. PANCREAS: Unremarkable. SPLEEN: Unremarkable. ADRENAL GLANDS: Unremarkable. KIDNEYS, URETERS, AND BLADDER: The kidneys appear within normal limits. There is no hydronephrosis or hydroureter. No urinary calculi are seen. The urinary bladder is normal in size and configuration. STOMACH AND BOWEL: Circumferential mucosal wall thickening is seen in the lower esophagus at the esophagogastric junction thought compatible with reflux esophagitis. Unremarkable appearance of the stomach. No evidence of bowel obstruction. No evidence suggesting enteritis or colitis. APPENDIX: No evidence of acute appendicitis on CT examination. PERITONEUM: No free fluid. No free air. LYMPH NODES: No lymphadenopathy is evident. VASCULATURE: No evidence of abdominal aortic aneurysm. BONES: No aggressive appearing osseous lesion. No acute osseous pathology evident. There is evidence of advanced degenerative disc disease at L4-5 and L5-S1. IMPRES DEVYN: 1. Evidence of reflux esophagitis. 2. Evidence of advanced degenerative disc disease at L4-5 and L5-S1. <Christen Skinner - Last Filed: 07/19/18 20:04> Medical Decision Making Medical Decision Making: Initial plan: -Blood sent. -CXR -Toradol -Zofran -Urine culture -HCG Urine Progress/Update: CT ABD/Pelvis ordered. <Leana Bob - Last Filed: 07/19/18 19:04> Disposition - Disposition Disposition Time: 19:05 <Leana Bob - Last Filed: 07/19/18 19:04> Counseled Patient/Family Regarding: Studies Performed, Diagnosis, Need For Followup, Rx Given <Christen Skinner - Last Filed: 07/19/18 20:04> - Disposition Referrals: Andry Whitley MD [Medical Doctor] - Disposition: HOME/ ROUTINE Condition: STABLE Additional Instructions: Please return if symptoms recur Prescriptions: Pantoprazole Sodium [Protonix] 40 mg PO DAILY #15 ect traMADol [Ultram] 50 mg PO TID PRN #15 tab PRN Reason: Pain, Severe (8-10) Instructions: Flank Pain (DC), Acid Reflux (Gastroesophageal Reflux Disease) in Adults Forms: [facility] ([place]an) - Clinical Impression Clinical Impression: Abdominal wall pain, Nausea, GERD (gastroesophageal reflux disease) - PA / HISTOLOGIST / Resident Statement MD/DO has reviewed & agrees with the documentation as recorded. - Scribe Statement The provider has reviewed the documentation as recorded by the Scribe (Hanny Macias) All medical record entries made by the Scribe were at my direction and personally dictated by me. I have reviewed the chart and agree that the record accurately reflects my personal performance of the history, physical exam, medical decision making, and the department course for this patient. I have also personally directed, reviewed, and agree with the discharge instructions and disposition. <Leana Bob - Last Filed: 07/19/18 19:04> Physician Patient Turnover Patient Signed Over To: Christen Skinner Handoff Comments: Pending CT scan and disposition <Leana Bob - Last Filed: 07/19/18 19:04>
[2018-07-19 17:28] LABS: BASO # 0.1 K/uL (0.0-0.2); BASO % 0.9 % (0.0-2.0); EOS # 0.2 K/uL (0.0-0.7); EOS % 3.7 % (0.0-4.0); HEMOGLOBIN 11.8 g/dL (11.0-16.0); LYMPH # 1.3 K/uL (1.0-4.3); LYMPH % 19.1 % (20.0-40.0); MEAN CELL VOLUME 81.6 fL (81.0-99.0); MEAN CORPUSCULAR HEMOGLOBIN 26.6 pg (27.0-31.0); MEAN CORPUSCULAR HGB CONC 32.6 g/dL (33.0-37.0); MONO # 0.4 K/uL (0.0-0.8); MONO % 5.7 % (0.0-10.0); NEUT # 4.6 K/uL (1.8-7.0); NEUT % 70.6 % (50.0-75.0); RBC 4.44 Mil/uL (3.80-5.20); RED CELL DISTRIBUTION WIDTH 15.8 % (11.5-14.5); WHITE BLOOD COUNT 6.6 K/uL (4.8-10.8)
[2018-07-19 17:31] LABS: HCG,QUALITATIVE URINE NEGATIVE (NEGATIVE)
[2018-07-19 17:32] LABS: SQUAMOUS EPITHIAL 7 /hpf (0-5); URINE BACTERIA RARE (<OCC); URINE BILIRUBIN NEGATIVE (NEGATIVE); URINE BLOOD NEGATIVE (NEGATIVE); URINE CLARITY Hazy (Clear); URINE COLOR Straw (YELLOW); URINE GLUCOSE (UA) 1+ mg/dL (Normal); URINE LEUKOCYTE ESTERASE NEG Leu/uL (Negative); URINE PROTEIN NEGATIVE (NEGATIVE); URINE UROBILINOGEN NORMAL mg/dL (0.2-1.0)
[2018-07-19 17:40] LABS: ALB/GLOB RATIO 1.2 (1.0-2.1); ALBUMIN 4.5 g/dL (3.5-5.0); ALT/SGPT 47 U/L (9-52); AST/SGOT 75 U/L (14-36); BLOOD UREA NITROGEN 10 mg/dL (7-17); CALCIUM 9.6 mg/dl (8.6-10.4); GFR NON-AFRICAN AMERICAN > 60; LIPASE 54 U/L (23-300)
--- NOTE | 2018-07-19 18:13 | RAD ---
Date of service: 07/19/2018 HISTORY: cough, fever COMPARISON: Chest radiographs 09/17/2015. FINDINGS: LUNGS: No active pulmonary disease. PLEURA: No significant pleural effusion identified, no pneumothorax apparent. CARDIOVASCULAR: No aortic atherosclerotic calcification present. Normal cardiac size. No pulmonary vascular congestion. OSSEOUS STRUCTURES: No significant abnormalities. VISUALIZED UPPER ABDOMEN: Normal. OTHER FINDINGS: None. IMPRESSION: No interval acute cardiopulmonary disease appreciated.
[2018-07-19 20:08] VITALS: BP 132/70; PULSE 78; RESP 20; TEMP 97.3; O2SAT 99
--- NOTE | 2018-07-20 13:24 | CT ---
Date of service: 07/19/2018 PROCEDURE: CT Abdomen and Pelvis without intravenous contrast HISTORY: Left flnk pain, hx of kidney stones COMPARISON: Noncontrast abdomen pelvis CT 02/18/2018. TECHNIQUE: Helical CT of the abdomen and pelvis was performed without oral or intravenous contrast as per referring physician request. Coronal and sagittal reformats were generated.. Contrast dose: None Radiation dose: Total exam DLP = 738.29 mGy-cm. This CT exam was performed using one or more of the following dose reduction techniques: Automated exposure control, adjustment of the mA and/or kV according to patient size, and/or use of iterative reconstruction technique. FINDINGS: LOWER THORAX: Cardiomegaly appears stable as well as small hiatal hernia. LIVER: Diffusely diminished attenuation of the liver is appreciated compatible with hepatic steatosis. No gross mass appreciable. Biliary tree difficult to evaluate due to lack of intravenous contrast. No gross dilatation suspected. Liver is borderline enlarged. GALLBLADDER AND BILE DUCTS: Distended but otherwise unremarkable appearing. No pericholecystic fluid collection or gross mural thickening associated. PANCREAS: Unremarkable. No gross lesion or ductal dilatation. SPLEEN: Unremarkable. ADRENALS: Unremarkable. No mass. KIDNEYS AND URETERS: No radiodense urolithiasis, perinephric fluid collection or obstructive uropathy is appreciate bilaterally. The bilateral ureters appear normal caliber overall. Stable nonspecific streaky perinephric changes are reiterated. VASCULATURE: Unremarkable. No aortic aneurysm. No aortic atherosclerotic calcification or mural plaque present. BOWEL: Unremarkable. No obstruction. No gross mural thickening. APPENDIX: Unremarkable. Normal appendix. PERITONEUM: Unremarkable. No free fluid. No free air. LYMPH NODES: Unremarkable. No enlarged lymph nodes. BLADDER: Urinary bladder is distended but thin and smooth walled. No radiodense urolithiasis associated in the lumen. REPRODUCTIVE: Unremarkable. BONES: Advanced multilevel lumbar spondylosis including spinal stenosis. OTHER FINDINGS: None. IMPRESSION: 1. No obstructive uropathy or radiodense urolithiasis bilaterally. Urinary bladder is distended but otherwise unremarkable appearing. Note is made of advanced multilevel lumbar spondylosis including central canal stenosis. Follow-up CT or MRI may be useful for added characterization. 2. Hepatic steatosis. 3. No ascites, measure edema, bowel obstruction or free intra peritoneal gas collection appreciable. Lack of contrast agents limits this examination outside of the urolithiasis indication. Preliminary report provided by Tatiana 07/19/2018, 7:29 p.m..
== END 2018-07-19 20:14 | disposition home or self-care (01) ==
LOC: C.ER 15:45
DX: K21.9 Gastro-esophageal reflux disease without esophagitis (principal); R10.32 Left lower quadrant pain; R11.0 Nausea
CPT/HCPCS: 71045; 74176; 80053; 81001; 83690; 84703; 85025; 87086; 96374; 96375; 99285; J1885; J2270; J2405; J7030

== ENCOUNTER 2018-08-04 13:17 | Outpatient (CLI) | payer MEDICARE, SELFPAY | END 2018-08-04 13:18 | disposition home or self-care (01) | LOC: C.LAB 13:17 | DX: E11.9 Type 2 diabetes mellitus without complications (principal); E04.2 Nontoxic multinodular goiter; I10 Essential (primary) hypertension ==

== ENCOUNTER 2018-10-22 13:28 | Outpatient (CLI) | payer MEDICARE, OTHER | END 2018-10-22 13:29 | disposition home or self-care (01) | LOC: C.MRIC 13:28 ==

== ENCOUNTER 2018-10-22 14:50 | Outpatient (CLI) | payer MEDICARE, OTHER | END 2018-10-22 14:51 | disposition home or self-care (01) | LOC: C.USIC 14:50 | DX: E04.1 Nontoxic single thyroid nodule (principal) ==

== ENCOUNTER 2018-10-29 13:02 | Outpatient (CLI) | payer MEDICARE, OTHER | END 2018-10-29 13:03 | disposition home or self-care (01) | LOC: C.LAB 13:02 ==

== ENCOUNTER 2018-10-29 13:07 | Outpatient (CLI) | payer MEDICARE, OTHER | END 2018-10-29 13:08 | disposition home or self-care (01) | LOC: C.RADH 13:07 | DX: M54.5 Low back pain (principal) ==